=== PATIENT | male | born 1955 | race Caucasian/White ===

== ENCOUNTER 2017-03-11 15:40 | Observation (INO) | payer OTHER ==
[2017-03-11 16:25] LABS: #Eosinphils 0.3 thou/uL (0.0-0.7); #Lymphocytes 3.5 thou/uL (1.20-3.40); #Monocytes 0.6 thou/uL (0.11-0.59); #Neutrophils 5.7 thou/uL (1.40-6.50); %Basophils 0.4 % (0.0-1.0); %Eosinophils 3.4 % (0.0-10.0); %Lymphocytes 34.5 % (21.0-51.0); %Monocytes 5.9 % (0.0-10.0); %Neutrophils 55.9 % (42.0-75.0); Hemoglobin 14.8 g/dL (14.0-18.0); Mean Corpuscular HGB CONC 32.6 g/dL (32.0-36.0); Mean Corpuscular Hemoglobin 30.4 pg (27.0-31.0); Mean Corpuscular Volume 93.4 fl (80.0-94.0); Mean Platelet Volume 7.2 fL (7.4-10.4); Platelet Count 411 thou/uL (130-400); RBC Distribution Width 12.8 % (11.5-14.5); Red Blood Cell (RBC) Count 4.87 mill/uL (4.70-6.10); White Blood Cell (WBC) Count 10.2 thou/uL (4.8-10.8)
[2017-03-11 16:48] LABS: ALT (SGPT) 39 U/L (8-55); AST (SGOT) 23 U/L (5-34); Albumin 4.8 g/dL (3.4-4.8); Alkaline Phosphatase 75 U/L (40-150); Anion Gap 15 mmol/L (10-20); BUN (Urea Nitrogen) 12 mg/dL (8.4-25.7); Bilirubin, Total 0.6 mg/dL (0.2-1.2); CK (CPK) 76 U/L (30-200); CKMB 1.1 ng/mL (0-6.6); Calc. Creatinine Clearance 0 mL/min (70-130); Calcium 10.1 mg/dL (7.8-10.44); Carbon Dioxide 28 mmol/L (23-31); Chloride 102 mmol/L (98-107); Estimated GFR-MDRD Greater than 90; Globulin 3.2 g/dL (2.4-3.5); Glucose 82 mg/dL (80-115); Lipase 6 U/L (8-78); Potassium 4.5 mmol/L (3.5-5.1); Sodium 140 mmol/L (136-145); Troponin I Less than 0.010 ng/mL (< 0.028)
--- NOTE | 2017-03-11 16:52 | RAD ---
PORTABLE AP CHEST RADIOGRAPH: Date: 03-11-17 History: Chest pain. Difficult time catching breath. Comparison: None available. FINDINGS: Cardiac silhouette and pulmonary vasculature are within normal limits. The lungs are clear. Mild dege nerative changes are seen in the spine. IMPRESSION: No acute cardiopulmonary process. POS: [facility]
[2017-03-11] MEDS ORDERED: Nitroglycerin 2% Ointment 1 INCH/1 GM Packet ONE (17:08)
[2017-03-11 17:42] LABS: Bilirubin Negative (Negative); Blood, Urine Negative (Negative); Clarity CLEAR (Clear); Glucose, Urine (Dipstick) Negative (Negative); Leukocyte Negative (Negative); Nitrite Negative (Negative); Protein, Urine (Dipstick) Negative (Neg-Trace); Specific Gravity, Urine 1.009 (1.002-1.036); Urobilinogen 0.2 mg/dL (0.2-1.0); pH, Urine 7.5 (5.0-9.0)
[2017-03-11] MEDS ORDERED: Acetaminophen 500 MG TAB ONE (17:50)
[2017-03-11] MEDS ORDERED: hydrALAZINE 20 MG/ML VIAL ONE (17:50)
[2017-03-11] MEDS ORDERED: Morphine 4 MG/ML Carpuject ONE (19:08)
[2017-03-11] MEDS ORDERED: Ketorolac Tromethamine 30 MG/ML VIAL ONE (20:15)
[2017-03-11] MEDS ORDERED: diphenhydrAMINE 50 MG/ML VIAL ONE (20:16)
[2017-03-11] MEDS ORDERED: diphenhydrAMINE 50 MG CAP ONE (20:16)
[2017-03-11 20:31] LABS: Troponin I 0.014 ng/mL (< 0.028)
[2017-03-11] MEDS ORDERED: Zolpidem Tartrate 5 MG TAB PO SCH (21:00)
[2017-03-11] MEDS ORDERED: Zolpidem Tartrate 5 MG TAB ONE (21:10)
[2017-03-11 22:29] VITALS: BMI 30.4
[2017-03-11] MEDS ORDERED: carBAMazepine 200 MG TAB PO SCH (22:30)
[2017-03-11] MEDS ORDERED: oxyCODONE ER 20 MG TAB PO SCH (22:45)
[2017-03-11] MEDS: Sodium Chloride 0.9% 1,000 ML IV SCH (22:50)
[2017-03-11 23:31] LABS: Troponin I Less than 0.010 ng/mL (< 0.028)
--- NOTE | 2017-03-12 00:02 | HP ---
PRIMARY CARE PHYSICIAN: Kwadwo Cuadra M.D. CHIEF COMPLAINT: Shortness of breath. HISTORY OF PRESENT ILLNESS: The patient states he has shortness of breath with chest wall pain earlier this evening, has not experienced this for some time; prior echo performed in 2010 with prior history of right bundle branch block with a normal ejection fraction and prior echo and normal stress test, but has not had any cardiological workup since, the patient with longstanding history of trigeminal neuralgia, prior treated with narcotics. Patient states he has taken OxyContin and tramadol in the past. The patient has some reports that he has been using possibly more medication as prescribed or getting medications from additional physicians other than Dr. Kwadwo Cuadra on an outpatient basis. He states he has a flareup of his left side pain radiating down into the neck , somewhat of his trigeminal neuralgia. The patient states he has had cough, congestion, and some body aches over the last week or so. No real phlegm production. No fevers or chills reported. No flu contacts reported. Review of vital signs, blood pressure is ranging from 27 systolic to 152 systolic, diastolic is ranging from 96 to 122. PAST FAMILY, MEDICAL, SOCIAL AND SURGICAL HISTORY: Includes history of prostate cancer, hyperlipidemia, recurrent depression, erectile dysfunction, trigeminal neuralgia. The patient is status post prostatectomy reported nonsmoker, history of renal calculi, status post lithotripsy. Patient denies current alcohol use or tobacco use. Lives with spouse. No known drug allergies reported. LABORATORY WORK: Sodium of 140, potassium of 4.5, CO2 of 28, creatinine 0.78, glucose of 82, AST of 23, ALT of 39, CK-MB of 1.1, troponin II 0.01, BNP of 10. Albumin of 4.8, lipase of 6. Urinalysis normal specific gravity of 1.009, white blood cell count 10.2, MCV of 93, platelet count of 410, neutrophils percent 55.9, bands of 5.7. Chest x-ray clear. PHYSICAL EXAMINATION: GENERAL: Alert and oriented, in acute distress, grabbing at face regarding neuralgia. HEENT: Head is normocephalic, atraumatic. Extraocular movements are intact. Sclerae are clear. Oral mucosa is moist. NECK: Supple. Tenderness to light touch over the left cheek. HEART: Regular rate and rhythm at time of exam. LUNGS: Clear to auscultation bilaterally. No rubs or wheezes. ABDOMEN: Soft, nontender, positive bowel sounds throughout. EXTREMITIES: Lower extremities without cyanosis or edema. NEUROLOGIC: The patient is alert and oriented x3, no focal deficits. Speech is normal. ASSESSMENT AND PLAN: 1. Shortness of breath, chest pain, rule out myocardial infarction. Currently , troponins negative x2. Follow up third troponin and EKG changes on review of prior EKG from 2007 with right bundle branch block compared to the emergency department EKG. 2. The patient's chest pain is noncardiac, likely chest wall pain secondary to recent bout of likely viral bronchitis. 3.The patient's acute pain currently caused by trigeminal neuralgia, will stay on pain medications. Initiate patient on Tegretol this evening and see if we can get better pain control, likely the patient will be able to be discharged tomorrow. 4. HTN in range of possible urgency/emergency. Will cover with BP medications if not improved with pain control. MTDD
[2017-03-12] MEDS: traMADol HCl 50 MG TAB PO PRN ×4 (00:08→15:04)
[2017-03-12] MEDS ORDERED: traMADol HCl 50 MG TAB PO SCH (02:30)
[2017-03-12] MEDS: carBAMazepine 200 MG TAB PO SCH ×2 (07:40→16:41)
[2017-03-12] MEDS ORDERED: cloNIDine 0.1 MG TAB PO PRN (08:25)
[2017-03-12] MEDS ORDERED: oxyCODONE ER 20 MG TAB PO SCH (09:00)
[2017-03-12] MEDS ORDERED: Aspirin 325 MG TAB PO SCH (09:00)
[2017-03-12] MEDS ORDERED: Amlodipine 5 MG TAB PO SCH (09:00)
[2017-03-12] MEDS ORDERED: FLUoxetine HCl 20 MG CAP PO SCH (09:00)
[2017-03-12] MEDS: Sodium Chloride 0.9% 1,000 ML IV SCH (09:48)
[2017-03-12 15:39] VITALS: BP 147/83; TEMP 97.9
--- NOTE | 2017-03-12 15:53 | NM ---
NUCLEAR MEDICINE CARDIAC STRESS WITH EJECTION FRACTION AND WALL MOTION: HISTORY: Chest pain. COMPARISON: None. TECHNIQUE: The patient was administered 9 mCi of technetium-99m sestamibi for rest imaging and 30 mCi of technet ium-99m sestamibi for stress imaging. Cardiac gating is performed. FINDINGS: Homogeneous distribution of the radiotracer in the left ventricle. No reversibility or fixed defect. TID is 1.01. End-diastolic volume is 110 mL. End-systolic volume is 44 mL. CARDIAC GATING: Normal motion and thickening. Ejection fraction 60%. IMPRESSION: 1. No evidence of reversibility or fixed defect. 2. Ejection fraction is 60%. POS: [facility]
--- NOTE | 2017-03-12 17:46 | PRG ---
DATE OF SERVICE: 03/12/2017 FINAL PROGRESS OBSERVATION NOTE HISTORY OF PRESENT ILLNESS: Mr. Nino admitted yesterday for chest pain felt to be a probable nonc ardiac, but nonetheless symptoms were consistent with possible cardiac disease. He was seen and eval uated this morning by me. He was noted to be slightly hypertensive. He was started on amlodipine 5 mg daily. He underwent a nuclear stress test which showed an ejection fraction of 60% with no eviden ce of reversible defect; however, he did remain hypertensive through the day; however, due to the fac t that stress test was normal, his chest pain had resolved, it was felt like he could be discharged h ome. Discharge portion of this, he was discharged home on his home medications, specifically he was placed on aspirin 325 mg daily. He will continue on his fluoxetine 20 mg b.i.d., his OxyContin pain medici ne that he gets from another physician, Tegretol 200 mg b.i.d. Additionally, he was placed on amlodi pine 10 mg daily and he will follow up with me in approximately 2 weeks.
== END 2017-03-12 17:50 | disposition home or self-care (01) ==
LOC: ERS 15:40 → 2SW 18:04
PROVIDERS: ADMIT Family Medicine; ATTEND Family Medicine
DX: R07.89 Other chest pain (principal); G50.0 Trigeminal neuralgia; I10 Essential (primary) hypertension; E78.5 Hyperlipidemia, unspecified; N52.9 Male erectile dysfunction, unspecified; F32.9 Major depressive disorder, single episode, unspecified; Z79.899 Other long term (current) drug therapy; Z90.89 Acquired absence of other organs; Z98.890 Other specified postprocedural states; Z85.46 Personal history of malignant neoplasm of prostate
CPT/HCPCS: 36415; 71045; 78452; 80053; 81003; 82550; 82553; 83690; 83880; 84484; 85025; 93005; 93017; 96361; 96374; 96375; A9500; G0378; J0360; J1200; J1885; J2270